=== PATIENT | male | born 1980 | race Caucasian/White ===

== ENCOUNTER 2017-02-14 22:18 | Emergency (ER) | payer OTHER ==
[~2017-02-14] VITALS: Ht 177.8 cm; Wt 104.5 kg
[~2017-02-14 22:18] MED LIST: AMLO5TAB4 PO; ATOR10TA65 PO; CARV6.25 PO; COLC0.6T6 PO; HYDR-3498 PO; IBUP-1542 PO; IBUP800T25 PO; LANS30CA47 PO; LISI2.5T59 PO; TRAM50TA2 PO
[2017-02-14 22:21] VITALS: Ht 177.8 cm; Wt 104.5 kg
--- NOTE | 2017-02-15 00:31 | ERA ---
ER Documentation Chief Complaint Date/Time DATE: 02/15/17 TIME: 00:30 Chief Complaint right wrist pain x 3 days, denies injury HPI The patient is a 36-year-old male, came to the ER because of acute right wrist pain for the last 4 days. He had similar symptoms previously from gouty attack. He has been eating a lot of red meat and drinking. He denies fever, chills, trauma, neck pain, chest pain, dyspnea. past Medical history: Hypertension, dyslipidemia, gout Past Surgical history: Negative coronary angiogram 4 years ago ROS All systems reviewed and are negative except as per history of present illness. Medications Home Meds Active Scripts Hydrocodone/Acetaminophen ([place] 5-325 Tablet) 1 Each Tablet, 1 TAB PO Q6H Y for PAIN, #7 TAB Prov:DIANNE CASTILLO MD 02/15/17 Tramadol HCl (Tramadol HCl) 50 Mg Tablet, 50 MG PO Q4 Y for PAIN, #14 TAB Prov:LISA JUÁREZ MD 05/31/15 Ibuprofen* (Motrin*) 600 Mg Tab, 600 MG PO Q6, #20 TAB Prov:LISA JUÁREZ MD 05/31/15 Hydrocodone Bit-Acetaminophen* ([place]*) 5-325 Mg Tab, 1 TAB PO Q4H Y for PAIN, # 10 TAB Prov:CORINA DRAPER 12/02/14 Colchicine* (Colcrys*) 0.6 Mg Tablet, 0.6 MG PO prn pain, #10 TAB May repeat dose in 1 hour, max 1.8 mg in 1 hour Prov:CORINA DRAPER 12/02/14 Reported Medications Ibuprofen* (Ibuprofen*) 800 Mg Tab, 800 MG PO TID WITH FOOD, TAB 01/27/14 Amlodipine Besylate* (Norvasc*) 5 Mg Tablet, 5 MG PO DAILY, TAB 01/27/14 Lisinopril* (Lisinopril*) 2.5 Mg Tablet, 2.5 MG PO DAILY, TAB 01/27/14 Atorvastatin Calcium (Atorvastatin Calcium) 10 Mg Tab, 10 MG PO DAILY, TAB 01/27/14 Carvedilol* (Coreg*) 6.25 Mg Tablet, 6.25 MG PO BID, TAB 01/27/14 Lansoprazole* (Prevacid*) 30 Mg Capsule.dr, 30 MG PO DAILY BEFORE MEALS, CAP 01/27/14 Allergies Allergies: Coded Allergies: No Known Allergy (Unverified , 05/31/15) PMhx/Soc Anesthesia Reaction: No Hx Neurological Disorder: No Hx Respiratory Disorders: No Hx Cardiac Disorders: Yes (HTN, SEPTAL ISCHEMIA) Hx Psychiatric Problems: No Hx Miscellaneous Medical Probl: No Hx Alcohol Use: No Hx Substance Use: No Hx Tobacco Use: Yes Physical Exam Vitals Vital Signs Date Time Temp Pulse Resp B/P Pulse Ox O2 Delivery O2 Flow Rate FiO2 02/14/17 22:21 97.3 92 20 160/96 99 Physical Exam Const: No acute distress. Head: Atraumatic. Eyes: Normal Conjunctiva. ENT: Normal External Ears, Nose and Mouth. Neck: Full range of motion. No meningismus. Resp: Clear to auscultation bilaterally. Cardio: Regular rate and rhythm. Abd: Soft, non distended, normal bowel sounds, non tender. Skin: No petechiae or rashes. Back: No midline or flank tenderness. Ext: R wrist is with minimal tenderness, no erythema, no edema Neur: Awake and alert. No focal deficit Psych: Normal Mood and Affect. Results 24 hrs Current Medications Medications (Trade) Dose Ordered Sig/Minerva Route PRN Reason Start Time Stop Time Status Last Admin Dose Admin Ketorolac Tromethamine (Toradol) 60 mg ONCE STAT IM 02/15/17 00:54 02/15/17 00:55 DC 02/15/17 01:10 Procedures/[facility] MEDICAL MAKING DECISION: The patient is a 36-year-old male, presenting with acute gouty attack. He was treated with Toradol 60 mg IM for pain with good response The differential diagnoses considered include but are not limited to septic arthritis, fracture, sprain, contusion Departure Diagnosis: Primary Impression: Gout attack Condition: Good Comments He was discharged with colchicine and [place] I discussed the findings with the patient. I advised the patient to follow-up with the primary physician in about 1-2 days, sooner if needed and return if any concern. DIANNE CASTILLO MD Feb 15, 2017 00:31
[2017-02-15] MEDS ORDERED: KETOROLAC 60 MG INJ IM STA (00:54)
[2017-02-15] MEDS ORDERED: HYDR-906 PO (00:55)
== END 2017-02-15 01:45 | disposition home or self-care (01) ==
LOC: FTE 22:18
DX: M10.9 Gout, unspecified (principal); I10 Essential (primary) hypertension
CPT/HCPCS: 96372; J1885; Z7502

== ENCOUNTER 2017-09-11 17:39 | Emergency (ER) | END 2017-09-11 20:02 | disposition home or self-care (01) ==

== ENCOUNTER 2018-02-04 06:56 | Emergency (ER) | END 2018-02-04 08:36 | disposition home or self-care (01) ==

== ENCOUNTER 2018-04-08 09:13 | Emergency (ER) | END 2018-04-08 10:50 | disposition home or self-care (01) ==

== ENCOUNTER 2018-08-11 11:30 | Day surgery (SDC) | payer OTHER ==
[~2018-08-11] VITALS: Ht 180.3 cm; Wt 92.2 kg
[~2018-08-11 11:30] MED LIST changes: +ACET325T33 PO; +BEN25 PO; +CEPH-443 PO; +HYDR-4011 PO; +IBUP-1545 PO; -IBUP800T25 PO; +IBUP800T48 PO; +ONDA4TAB14 PO; +PRED20TA PO; +SUCR1TAB56 PO; +TRIA15CR55 TOP
[2018-08-11 12:03] VITALS: Ht 180.3 cm; Wt 92.2 kg
[2018-08-11] MEDS ORDERED: ASA 81 (12:09)
[2018-08-11] MEDS ORDERED: OMEPRAZOLE (12:09)
[2018-08-11] MEDS ORDERED: ALLOPURINOL (12:09)
[2018-08-11 12:29] VITALS: BP 118/73; PULSE 70; RESP 20
--- NOTE | 2018-08-11 12:38 | PREAC ---
Date/Time of Note Date/Time of Note DATE: 08/11/18 TIME: 12:35 Anesthesia Eval and Record Evaluation Time Pre-Procedure Interview DATE: 08/11/18 TIME: 12:35 Age 38 Sex male NPO: 8 hrs Preoperative diagnosis Reflux esophagitis Planned procedure EGD Past Medical History Past Medical History: Includes Cardio: HTN, Dyslipidemia Endo: Other (Gout) Pulm: Smoking Hx Hepatic: Other (Fatty liver) Recreational drugs: Marijuana Surgery & Anesthesia Issues No known issue Meds Anticoagulation: No Beta Bryan within 24 hr: Yes Reported Medications [Ompeprazole] No Conflict Check 08/11/18 [Allopurinol] No Conflict Check 08/11/18 [Asa 81] No Conflict Check 08/11/18 Carvedilol* (Coreg*) 6.25 Mg Tablet, 6.25 MG PO BID, TAB 01/27/14 Discontinued Reported Medications Ibuprofen* (Ibuprofen*) 800 Mg Tab, 800 MG PO TID WITH FOOD, TAB 01/27/14 Amlodipine Besylate* (Norvasc*) 5 Mg Tablet, 5 MG PO DAILY, TAB 01/27/14 Lisinopril* (Lisinopril*) 2.5 Mg Tablet, 2.5 MG PO DAILY, TAB 01/27/14 Atorvastatin Calcium (Atorvastatin Calcium) 10 Mg Tab, 10 MG PO DAILY, TAB 01/27/14 Lansoprazole* (Prevacid*) 30 Mg Capsule.dr, 30 MG PO DAILY BEFORE MEALS, CAP 01/27/14 Discontinued Scripts Cephalexin* (Keflex*) 500 Mg Capsule, 500 MG PO QID for 7 Days, CAP Prov:CANDIDA HUSSEIN PA-C 04/08/18 Prednisone* (Prednisone*) 20 Mg Tab, 40 MG PO DAILY for 4 Days, TAB Prov:CANDIDA HUSSEIN PA-C 04/08/18 Triamcinolone Acetonide (Triamcinolone Acetonide) 0.1% - 15 Gm Cream.gm., 1 APPLIC TOP BID, #1 TUB Prov:CANDIDA HUSSEIN PA-C 04/08/18 Diphenhydramine Hcl* (Benadryl*) 25 Mg Cap, 25 MG PO Q6, #30 CAP Prov:CANDIDA HUSSEIN PA-C 04/08/18 Acetaminophen* (Tylenol*) 325 Mg Tablet, 2 TAB PO Q6 PRN for PAIN AND OR ELEVATED TEMP, #20 TAB Prov:ALEKSANDR SORENSON PA-C 02/04/18 Ondansetron (Ondansetron Odt) 4 Mg Tab.rapdis, 4 MG PO Q6H PRN for NAUSEA AND/OR VOMITING, #10 TAB Prov:ALEKSANDR SORENSON PA-C 02/04/18 Sucralfate* (Carafate*) 1 Gm Tab, 1 GM PO QID, #30 TAB Prov:ALEKSANDR SORENSON PA-C 02/04/18 Ibuprofen* (Motrin*) 800 Mg Tab, 800 MG PO Q6H PRN for PAIN AND OR ELEVATED TEMP, #30 TAB Prov:JOON CONNORS MD 09/11/17 Hydrocodone/Acetaminophen ([place] 5-325 Tablet) 1 Each Tablet, 1 TAB PO Q6H PRN for PAIN, #7 TAB Prov:DIANNE CASTILLO MD 02/15/17 Tramadol HCl (Tramadol HCl) 50 Mg Tablet, 50 MG PO Q4 PRN for PAIN, #14 TAB Prov:LISA JUÁREZ MD 05/31/15 Ibuprofen* (Motrin*) 600 Mg Tab, 600 MG PO Q6, #20 TAB Prov:LISA JUÁREZ MD 05/31/15 Hydrocodone Bit-Acetaminophen* ([place]*) 5-325 Mg Tab, 1 TAB PO Q4H PRN for PAIN, #10 TAB Prov:CORINA DRAPER 12/02/14 Colchicine* (Colcrys*) 0.6 Mg Tablet, 0.6 MG PO prn pain, #10 TAB May repeat dose in 1 hour, max 1.8 mg in 1 hour Prov:AVIS DRAPERA 12/02/14 Meds reviewed: Yes Allergies Coded Allergies: No Known Allergy (Unverified , 08/11/18) Allergies Reviewed: Yes Labs/Studies Labs Reviewed: Reviewed by anesthesiologist test: N/A Pre-procedure Exam Last vitals Vital Signs Date Temp Pulse Resp B/P (MAP) Pulse Ox O2 O2 Flow FiO2 Time Delivery Rate 08/11/18 97.7 70 20 118/73 100 Room Air 12:29 (88) Airway: Adequate mouth opening Mallampati: Mallampati I Teeth: Normal Lung: Normal Heart: Normal ASA Physical Status ASA physical status: 2 Emergency: None Planned Anesthetic General/MAC: MAC Planned Pain Management Parenteral pain med Pre-operative Attestations Prior to commencing anesthesia and surgery, the patient was re-evaluated, there was verification of: *The patient's identity *The results of appropriate recent lab work and preoperative vital signs *The above evaluation not changing prior to induction *Anesthetic plan, risk benefits, alternative and complications discussed with patient/family; questions answered; patient/family understands, accepts and wishes to proceed. SHARAD OGDEN MD Aug 11, 2018 12:38
[2018-08-11] MEDS ORDERED: PROPOFOL 20 ML ONE (12:39)
[2018-08-11 13:20] VITALS: BP 119/78; RESP 12
--- NOTE | 2018-08-11 13:57 | PAC ---
Date/Time of Note Date/Time of Note DATE: 08/11/18 TIME: 13:56 Post-Anesthesia Notes Post-Anesthesia Note Last documented vital signs Vital Signs Date Temp Pulse Resp B/P (MAP) Pulse Ox O2 O2 Flow FiO2 Time Delivery Rate 08/11/18 12 119/78 96 Room Air 13:20 (92) 08/11/18 97.7 70 12:29 Activity: WNL Respiratory function: WNL Cardiovascular function: WNL Mental status: Baseline Pain reasonably controlled: Yes Hydration appropriate: Yes Nausea/Vomiting absent: Yes Comments BT: 98.1 SHARAD OGDEN MD Aug 11, 2018 13:57
== END 2018-08-11 14:42 | disposition home or self-care (01) ==
LOC: GIL 11:30
PROVIDERS: ATTEND Internal Medicine Gastroenterology
DX: K29.50 Unspecified chronic gastritis without bleeding (principal); K44.9 Diaphragmatic hernia without obstruction or gangrene; K21.0 Gastro-esophageal reflux disease with esophagitis; I10 Essential (primary) hypertension
CPT/HCPCS: 43239; 88305; 88312; Z7610